=== PATIENT | female | born 1960 | race African-American/Black ===

== ENCOUNTER → 2016-08-27 | Outpatient (CLI) | payer MEDICARE, MEDICAID ==
[~2016-08-27] MED LIST: ALBU0.086 INH; ALBU6.7H INH; ALBUAER3 INH; AMLO5TAB96 PO; FERR324T4 PO; GABA300C3 PO; HYDR-3580 PO; NAPR-576 PO; NORV5TAB PO; OMPR20CCR PO; SLOWTAB PO; TEMA15 PO
== END ==
LOC: CLAB 08:07
PROVIDERS: ATTEND General Practice
DX: R20.2 Paresthesia of skin (principal)
CPT/HCPCS: 36415; 82607

== ENCOUNTER 2016-11-08 08:53 | Emergency (ER) | payer MEDICARE, MEDICAID ==
[~2016-11-08 08:53] MED LIST changes: -ALBUAER3 INH
[2016-11-08 09:11] VITALS: BP 172/138; PULSE 88; RESP 24; TEMP 98.1; O2SAT 99
[2016-11-08] MEDS ORDERED: ALBUAER3 INH (10:07)
--- NOTE | 2016-11-08 10:07 | PD ---
HPI Chief Complaint: Abdominal Pain Time Seen by Provider: 09:47 Travel History International Travel<30 days: No Contact w/Intl Traveler<30days: No Traveled to known affect area: No History of Present Illness HPI This is a 56-year-old female who has not had a menstrual cycle in a year who presents to the emergency department with 3 days of vaginal bleeding, described as a normal menstrual cycle associated with intermittent spotting, and some cramping lower abdominal pain. She says she's been under a lot of stress lately. She denies any lightheadedness or dizziness. She does not follow with a section cutter. So reports she has a history of asthma and is out of her albuterol inhaler. PFSH Past Medical History Arthritis: Yes Asthma: Yes Blood Disorders: No Anxiety: Yes Depression: No Cancer: No Cardiovascular Problems: Yes (HYPERTENSION) Chemotherapy: No COPD: Yes Diminished Hearing: No Glaucoma: No Genitourinary: No Hypertension: Yes Kidney Stones: No Musculoskeletal: Yes Neurologic: No Psychiatric: Yes Reproductive: Yes (TUBAL LIGATION) Respiratory: Yes Radiation Therapy: No Renal Failure: No Menopausal: Yes : 2 Para: 2 Tubal Ligation: Yes Past Surgical History Abdominal Surgery: No AICD: No Cardiac Surgery: No Ear Surgery: No Endocrine Surgery: No Eye Surgery: No Genitourinary Surgery: No Oral Surgery: No Pacemaker: No Thoracic Surgery: No Social History Alcohol Use: No Tobacco Use: Yes (3 PER DAY) Substance Use: No Allergies-Medications (Allergen,Severity, Reaction): Coded Allergies: Penicillin (Verified Allergy, Severe, 02/15/14) Reported Meds & Prescriptions Reported Meds & Active Scripts Active Naproxen 500 Mg Tab 500 Mg PO BID PRN Slow-Mag (Magnesium Chloride) 64 Mg Tab 1 Tab PO DAILY 7 Days Restoril 15 mg (Temazepam) 15 Mg Cap 15 Mg PO HS PRN Norvasc (Amlodipine Besylate) 5 Mg Tab 1 Tab PO DAILY 30 Days Prilosec 20 Mg Cap (Omeprazole) 20 Mg Capcr 20 Mg PO BID Proventil Ud 0.083% (2.5 Mg/3 Ml) (Albuterol Sulfate) 2.5 Mg/3 Ml Inha 2.5 Mg INH Q4HPRN Proventil Hfa (Albuterol Sulfate) 6.7 Gm Aero 2 Puff INH Q4HPRN * SHAKE WELL BEFORE USE * Reported Hydrocodone/Acetaminophen 7.5 mg/325 mg [id number] Hydrocodone Tab 1 Tab PO TID PRN Gabapentin 300 Mg Cap 300 Mg PO HS Norvasc (Amlodipine Besylate) 5 Mg Tab 5 Mg PO DAILY Ferrous Sulfate 325 Mg Tab 325 Mg PO DAILY Review of Systems Except as stated in HPI: all other systems reviewed are Neg Physical Exam Narrative GENERAL:Well appearing, no acute distress SKIN: Focused skin assessment warm and dry. HEAD: Atraumatic. Normocephalic. EYES: Pupils equal and round. No injection or drainage. ENT: Moist mucous membranes NECK: Trachea midline. CARDIOVASCULAR: Regular rate and rhythm. No murmur appreciated. RESPIRATORY: Mild wheezing bilaterally. GASTROINTESTINAL: Abdomen soft, non-tender, nondistended. MUSCULOSKELETAL: No obvious deformities. NEUROLOGICAL: Awake and alert. No obvious cranial nerve deficits. Moving all extremities. PSYCHIATRIC: Appropriate mood and affect; insight and judgment normal. Data Data Last Documented VS Vital Signs Date Time Temp Pulse Resp B/P Pulse Ox O2 Delivery O2 Flow Rate FiO2 11/08/16 09:11 98.1 88 24 172/138 99 Room Air MDM Medical Decision Making Medical Screen Exam Complete: Yes Emergency Medical Condition: Yes Interpretation(s) Afebrile, no tachycardia, hypertensive Differential Diagnosis Endometrial cancer, endometrial hyperplasia, menopausal bleeding Narrative Course This is a 56-year-old female who presents to the emergency department with vaginal bleeding when she has not had a menstrual cycle for one year. This could be normal menopausal bleeding or could reflect endometrial hyperplasia or cancer. I discussed this with the patient and discussed the importance of her following up with a section cutter as soon as possible for ultrasound and possible endometrial biopsy. She does have a strong family history of cancer. Patient expressed understanding. I don't think any labs or imaging will be helpful in the emergency department she really requires longitudinal outpatient follow-up. Patient was discharged home. Diagnosis Primary Impression: Vaginal bleeding Patient Instructions: General Instructions Additional Instructions: If you develop severe or worsening abdominal pain, fever>100.4, persistent vomiting or inability to eat or drink return to the emergency department immediately. It is very important that you follow-up with a section cutter as soon as possible to have an evaluation to make sure you don't have cancer. Follow up with [facility] at: Follow up with: [facility]. [address] [place] [address] Office Hours Friday - 9:00 am - 5:30 pm Friday 8:00 am - 12:00 pm Teen Tuesdays 4:00 - 6:30 pm Med/Other Pt SpecificInfo: Prescription(s) given Scripts Albuterol 8.5 GM Inh (Proair Hfa 8.5 GM Inh)90 Mcg/Act Aer2 Puff INH Q4-6H PRN ( SHORTNESS OF BREATH) #1 INHALER Ref 0 108 mcg/actuation Prov:Francesca Gonzalez MD 11/08/16 Disposition: 01 DISCHARGE HOME Condition: Stable Francesca Gonzalez MD Nov 08, 2016 10:07
== END 2016-11-08 10:32 | disposition home or self-care (01) ==
LOC: NEPD 08:53
DX: N93.9 Abnormal uterine and vaginal bleeding, unspecified (principal); Z72.0 Tobacco use; J45.909 Unspecified asthma, uncomplicated; J44.9 Chronic obstructive pulmonary disease, unspecified; I10 Essential (primary) hypertension
CPT/HCPCS: 99284

== ENCOUNTER → 2016-12-17 | Outpatient (CLI) | payer MEDICARE, MEDICAID ==
[~2016-12-17] MED LIST changes: +ALBUAER3 INH
[2016-12-17 10:03] LABS: MAGNESIUM 1.8 MG/DL (1.5-2.5)
== END ==
LOC: CLAB 09:12
PROVIDERS: ATTEND General Practice
DX: E83.51 Hypocalcemia (principal)
CPT/HCPCS: 36415; 82330; 83735; 83970; 84100

== ENCOUNTER → 2017-05-15 | Outpatient (CLI) | payer MEDICARE, MEDICAID ==
[2017-05-15 08:43] LABS: ANION GAP 8 MEQ/L (5-15); BICARBONATE 27.2 MEQ/L (21.0-32.0); BLOOD UREA NITROGEN 9 MG/DL (7-18); CHLORIDE 106 MEQ/L (98-107); GLOMERULAR FILTRATION RATE 91 ML/MIN (>89); GLUCOSE,FASTING 114 MG/DL (74-99); POTASSIUM 3.7 MEQ/L (3.5-5.1); SODIUM (NA) 141 MEQ/L (136-145)
[2017-05-15 08:44] LABS: ALT (GPT) 19 U/L (10-53); AST (GOT) 10 U/L (15-37)
[2017-05-15 08:46] LABS: ALKALINE PHOSPHATASE 72 U/L (45-117); TOTAL BILIRUBIN ADULT 0.3 MG/DL (0.2-1.0)
== END ==
LOC: CLAB 07:01
PROVIDERS: ATTEND General Practice
DX: I10 Essential (primary) hypertension (principal)
CPT/HCPCS: 36415; 80053

== ENCOUNTER 2018-01-13 11:03 | Emergency (ER) | payer OTHER, MEDICAID ==
[~2018-01-13] VITALS: Ht 168.9 cm; Wt 112.0 kg
[~2018-01-13 11:03] MED LIST changes: -AMLO10TA2 PO; -CLON0.2T PO; -CYCL10TA PO; -HYDR-3583 PO; -IBUP1TAB5 PO; -LISI40TA PO
[2018-01-13 11:13] VITALS: BP 170/101; PULSE 85; RESP 20; TEMP 98; O2SAT 98
[2018-01-13] MEDS ORDERED: ACETAMINOPHEN/HYDROcodone 325 MG/5 MG TAB PO ONE (11:15)
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
[2018-01-13] MEDS ORDERED: LISI40TA PO (11:22)
[2018-01-13] MEDS ORDERED: CLON0.2T PO (11:22)
[2018-01-13] MEDS ORDERED: AMLO10TA2 PO (11:22)
[2018-01-13] MEDS ORDERED: HYDR-3583 PO (11:22)
[2018-01-13 11:25] VITALS: BP 170/101; PULSE 85; RESP 18; TEMP 98; O2SAT 98
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
[2018-01-13] MEDS ORDERED: IBUP1TAB5 PO (12:26)
[2018-01-13] MEDS ORDERED: CYCL10TA PO (12:26)
== END 2018-01-13 12:54 | disposition home or self-care (01) ==
LOC: NEPD 11:03
DX: F07.81 Postconcussional syndrome (principal); R51 Headache; M54.2 Cervicalgia; V49.9XXA Car occupant (driver) (passenger) injured in unspecified traffic accident, initial encounter; I10 Essential (primary) hypertension; J44.9 Chronic obstructive pulmonary disease, unspecified; M19.90 Unspecified osteoarthritis, unspecified site; F41.9 Anxiety disorder, unspecified; Z79.899 Other long term (current) drug therapy
CPT/HCPCS: 70450; 72125; 99283

== ENCOUNTER → 2018-01-13 | Outpatient (CLI) | payer MEDICARE, MEDICAID ==
[~2018-01-13] MED LIST changes: +AMLO10TA2 PO; +CLON0.2T PO; +CYCL10TA PO; +HYDR-3583 PO; +IBUP1TAB5 PO; +LISI40TA PO
[2018-01-13 08:19] LABS: ALT (GPT) 18 U/L (10-53)
[2018-01-13 08:22] LABS: ALKALINE PHOSPHATASE 77 U/L (45-117); TOTAL BILIRUBIN ADULT 0.4 MG/DL (0.2-1.0); TOTAL PROTEIN 8.6 GM/DL (6.4-8.2)
[2018-01-13 08:23] LABS: ALBUMIN 3.4 GM/DL (3.4-5.0); AST (GOT) 21 U/L (15-37); BICARBONATE 26.6 MEQ/L (21.0-32.0); BLOOD UREA NITROGEN 10 MG/DL (7-18); CALCIUM 8.9 MG/DL (8.5-10.1); CHLORIDE 109 MEQ/L (98-107); CREATININE 0.78 MG/DL (0.50-1.00); GLOMERULAR FILTRATION RATE 92 ML/MIN (>89); GLUCOSE,FASTING 103 MG/DL (74-99); SODIUM (NA) 142 MEQ/L (136-145)
== END ==
LOC: CLAB 07:25
PROVIDERS: ATTEND General Practice
DX: D21.0 Benign neoplasm of connective and other soft tissue of head, face and neck (principal)
CPT/HCPCS: 36415; 80053